=== PATIENT | female | born 1955 | race Caucasian/White ===

== ENCOUNTER 2023-11-01 13:53 | Inpatient (IN) | payer MEDICARE, OTHER ==
[~2023-11-01] VITALS: Ht 167.6 cm; Wt 95.6 kg
[2023-11-01] MEDS ORDERED: LINZ72CA PO (14:11)
[2023-11-01] MEDS ORDERED: LISI20TA35 PO (14:11)
[2023-11-01] MEDS ORDERED: PREG100C2 PO (14:11)
[2023-11-01] MEDS ORDERED: EZET1TAB98 PO (14:11)
[2023-11-01] MEDS ORDERED: FAMO1TAB11 PO (14:11)
[2023-11-01] MEDS ORDERED: ESOM40CA35 PO (14:11)
[2023-11-01] MEDS ORDERED: POTA1TAB23 PO (14:11)
[2023-11-01] MEDS ORDERED: SOD1.479 (14:11)
[2023-11-01] MEDS ORDERED: ZOLP5TAB PO (14:11)
[2023-11-01] MEDS ORDERED: DULO1CAP6 PO (14:11)
[2023-11-01] MEDS ORDERED: TIZA10TA (14:11)
[2023-11-01 15:03] LABS: BASO % 0.1 % (0.0-1.0); EOS # 0.1 10^3/uL (0.0-0.5); EOS % 1.2 % (0.0-3.0); HEMATOCRIT 40.8 % (36.0-47.0); HEMOGLOBIN 13.5 g/dl (12.0-15.5); LYMPH # 1.1 10^3/uL (1.5-5.0); LYMPH % 11.6 % (24.0-44.0); MEAN CORPUSCULAR HEMOGLOBIN 28.6 pg (27.0-33.0); MEAN CORPUSCULAR HGB CONC 33.1 g/dl (32.0-36.5); MEAN CORPUSCULAR VOLUME 86.4 fl (80.0-96.0); MONO # 1.1 10^3/uL (0.0-0.8); NEUTROPHILS # 7.3 10^3/uL (1.5-8.5); NEUTROPHILS % 75.8 % (36.0-66.0); PLATELET COUNT, AUTOMATED 249 10^3/uL (150-450); RED BLOOD COUNT 4.72 10^6/uL (4.00-5.40); WHITE BLOOD COUNT 9.6 10^3/uL (4.0-10.0)
[2023-11-01 15:13] LABS: ERYTHROCYTE SEDIMENTATION RATE 40 mm/hr (0-30)
[2023-11-01 15:16] LABS: ALBUMIN 4.1 G/DL (3.2-5.2); ALKALINE PHOSPHATASE 110 U/L (46-116); ALT/SGPT 28 U/L (7.0-40); AST/SGOT 22 U/L (<34); BILIRUBIN,DIRECT 0.2 MG/DL (<0.4); BILIRUBIN,TOTAL 0.6 MG/DL (0.3-1.2); BLOOD UREA NITROGEN 16 MG/DL (9-23); CALCIUM LEVEL 9.2 MG/DL (8.3-10.6); CARBON DIOXIDE LEVEL 28 MMOL/L (20-31); CHLORIDE LEVEL 105 MMOL/L (98-107); CREATININE FOR GFR 0.68 MG/DL (0.55-1.30); GLOMERULAR FILTRATION RATE > 60.0 (>45); GLUCOSE, FASTING 95 MG/DL (74-106); POTASSIUM SERUM 3.4 MMOL/L (3.5-5.1); SODIUM LEVEL 140 MMOL/L (136-145); TOTAL PROTEIN 7.5 G/DL (5.7-8.2)
[2023-11-01 15:20] LABS: PROCALCITONIN <0.04 ng/ml
[2023-11-01 15:32] LABS: INR 1.06; PARTIAL THROMBOPLASTIN TIME 26.6 SECONDS (24.8-34.2); PROTHROMBIN TIME 13.5 SECONDS (12.5-14.5)
[2023-11-01] MEDS: BOOSTRIX VACCINE (TETANUS/DIPHTH/ACEL. PERTUSSIS) 0.5ML SYR IM ONE (15:50)
[2023-11-01] MEDS: metroNIDAZOLE 500 MG in IV 1 EA IV ONE (16:54)
[2023-11-01] MEDS: KETOROLAC 30 MG/ML 1ML VIAL IV ONE (17:49)
[2023-11-01] MEDS: LevoFLOXacin IV 750 MG in IV 1 EA IV ONE (17:52)
[2023-11-01] MEDS ORDERED: ONDANSETRON 4MG 2ML VIAL IV PRN (17:55)
[2023-11-01] MEDS ORDERED: ENOXAPARIN 40MG/0.4ML SYRINGE (J1650 PER 10MG) SC SCH (18:00)
[2023-11-01] MEDS: POTASSIUM CHLORIDE 10MEQ SR TABLET PO ONE (18:23)
[2023-11-01] MEDS: KCL 20MEQ in NS 1000ML 1,000 ML IV SCH (19:22)
[2023-11-01] MEDS ORDERED: B-12100021 PO (19:57)
[2023-11-01] MEDS ORDERED: MULT-90 PO (19:57)
[2023-11-01] MEDS ORDERED: OYST1TAB PO (19:57)
[2023-11-01] MEDS ORDERED: GNP250TA9 PO (19:57)
[2023-11-01] MEDS ORDERED: HOME MED LIST COMPLETE! XX SCH (20:00)
[2023-11-01 20:25] VITALS: BP 123/52; TEMP 97.7; O2SAT 99
[2023-11-01] MEDS: zolPIDEM TARTRATE 5 MG TAB PO SCH (21:18)
[2023-11-01] MEDS: PREGABALIN 100 MG CAP (LYRICA) PO SCH (21:18)
[2023-11-01] MEDS: SIMVASTATIN 40 MG TAB PO SCH (21:18)
[2023-11-01] MEDS: KETOROLAC 30 MG/ML 1ML VIAL IV PRN (23:24)
[2023-11-01 23:51] VITALS: BP 123/53; TEMP 97.9; O2SAT 96
[2023-11-02] VITALS (8 sets, daily range): BP systolic 111–151; BP diastolic 53–83; TEMP 97.2–98.1; O2SAT 90–97
[2023-11-02] MEDS: metroNIDAZOLE 500 MG in IV 1 EA IV SCH (01:18)
[2023-11-02 07:43] LABS: HEMATOCRIT 35.1 % (36.0-47.0); HEMOGLOBIN 11.8 g/dl (12.0-15.5); MEAN CORPUSCULAR HEMOGLOBIN 28.9 pg (27.0-33.0); MEAN CORPUSCULAR HGB CONC 33.6 g/dl (32.0-36.5); PLATELET COUNT, AUTOMATED 218 10^3/uL (150-450); RED BLOOD COUNT 4.08 10^6/uL (4.00-5.40); WHITE BLOOD COUNT 8.1 10^3/uL (4.0-10.0)
[2023-11-02 08:08] LABS: BLOOD UREA NITROGEN 15 MG/DL (9-23); CALCIUM LEVEL 8.4 MG/DL (8.3-10.6); CARBON DIOXIDE LEVEL 25 MMOL/L (20-31); CHLORIDE LEVEL 107 MMOL/L (98-107); CREATININE FOR GFR 0.69 MG/DL (0.55-1.30); GLOMERULAR FILTRATION RATE > 60.0 (>45); GLUCOSE, FASTING 100 MG/DL (74-106); POTASSIUM SERUM 3.7 MMOL/L (3.5-5.1); SODIUM LEVEL 137 MMOL/L (136-145)
[2023-11-02] MEDS: DULoxetine 30MG CAPSULE (CYMBALTA) PO SCH (08:13)
[2023-11-02] MEDS: PANTOPRAZOLE 40MG TAB (PROTONIX) PO SCH (08:13)
[2023-11-02] MEDS ORDERED: ACETAMINOPHEN 1000MG 100ML IV BAG As Ordered ONE (09:31)
[2023-11-02] MEDS ORDERED: KETOROLAC 60MG 2ML VIAL As Ordered ONE (09:38)
[2023-11-02] MEDS ORDERED: propofoL 200 MG/20 ML VIAL As Ordered ONE (09:38)
[2023-11-02] MEDS ORDERED: LIDOCAINE 2% 100MG/5ML SDV (FOR ANES.) As Ordered ONE (09:38)
[2023-11-02] MEDS ORDERED: MIDAZOLAM INJ 2MG/2ML VIAL As Ordered ONE (09:38)
[2023-11-02] MEDS ORDERED: ONDANSETRON 4MG 2ML VIAL As Ordered ONE (09:38)
[2023-11-02] MEDS ORDERED: fentaNYL 100 MCG/2 ML INJECTION As Ordered ONE (09:39)
[2023-11-02] MEDS ORDERED: dexmedeTOMIDine (4MCG/ML)200MCG/50ML BTL (PRECEDEX) As Ordered ONE (13:07)
[2023-11-02] MEDS ORDERED: ONDANSETRON 4MG 2ML VIAL IV PRN (13:40)
[2023-11-02] MEDS ORDERED: oxyCODONE 5MG TAB PO PRN (13:40)
[2023-11-02] MEDS ORDERED: fentaNYL 100 MCG/2 ML INJECTION IV PRN (13:40)
[2023-11-02] MEDS: LR 1,000 ML IV SCH (13:40)
[2023-11-02] MEDS ORDERED: HYDROMORPHONE HCL 0.5 MG/ 0.5 ML SYRINGE IV PRN (13:40)
[2023-11-02] MEDS: FAMOTIDINE 20 MG TAB PO SCH (16:23)
[2023-11-02] MEDS: hydroCHLOROthiazide 12.5 MG CAPSULE PO SCH (16:24)
[2023-11-02] MEDS: LevoFLOXacin IV 750 MG in IV 1 EA IV SCH (17:36)
[2023-11-02] MEDS: EZETIMIBE 10MG TABLET (ZETIA) PO SCH (20:20)
[2023-11-03] VITALS: BP 154/72; TEMP 97.2; O2SAT 91
[2023-11-03 04:00] VITALS: BP 124/66; TEMP 97.7; O2SAT 90
[2023-11-03 06:39] LABS: HEMATOCRIT 35.3 % (36.0-47.0); HEMOGLOBIN 11.6 g/dl (12.0-15.5); MEAN CORPUSCULAR HEMOGLOBIN 28.8 pg (27.0-33.0); MEAN CORPUSCULAR HGB CONC 32.9 g/dl (32.0-36.5); MEAN CORPUSCULAR VOLUME 87.6 fl (80.0-96.0); PLATELET COUNT, AUTOMATED 202 10^3/uL (150-450); RED BLOOD COUNT 4.03 10^6/uL (4.00-5.40); WHITE BLOOD COUNT 7.8 10^3/uL (4.0-10.0)
[2023-11-03 07:07] LABS: ALBUMIN 3.4 G/DL (3.2-5.2); ALKALINE PHOSPHATASE 105 U/L (46-116); ALT/SGPT 27 U/L (7.0-40); AST/SGOT 20 U/L (<34); BILIRUBIN,TOTAL 0.3 MG/DL (0.3-1.2); BLOOD UREA NITROGEN 12 MG/DL (9-23); CALCIUM LEVEL 8.8 MG/DL (8.3-10.6); CARBON DIOXIDE LEVEL 24 MMOL/L (20-31); CHLORIDE LEVEL 108 MMOL/L (98-107); CREATININE FOR GFR 0.65 MG/DL (0.55-1.30); GLOMERULAR FILTRATION RATE > 60.0 (>45); GLUCOSE, FASTING 128 MG/DL (74-106); POTASSIUM SERUM 3.7 MMOL/L (3.5-5.1); SODIUM LEVEL 138 MMOL/L (136-145); TOTAL PROTEIN 6.4 G/DL (5.7-8.2)
[2023-11-03] MEDS ORDERED: traMADol 50 MG TAB PO PRN (08:15)
[2023-11-03 08:24] VITALS: BP 141/61; TEMP 97.5; O2SAT 91
[2023-11-03] MEDS: ACETAMINOPHEN TAB 650MG DOSE (2X325MG) PO PRN (08:34)
[2023-11-03] MEDS ORDERED: OMEPRAZOLE 20MG CAP PO SCH (09:00)
[2023-11-03 12:21] VITALS: BP 141/66; TEMP 97.5; O2SAT 92
[2023-11-03] MEDS: LevoFLOXacin 750 MG TABLET PO SCH (12:24)
[2023-11-03] MEDS: metroNIDAZOLE (FLAGYL) 500MG TABLET PO SCH (15:05)
[2023-11-03 16:21] VITALS: BP 149/68; TEMP 97.3; O2SAT 92
[2023-11-03] MEDS: LACTOBACILLUS ACIDOPHILUS CAP (BACID) PO SCH (18:06)
[2023-11-03 21:33] VITALS: BP 149/70; TEMP 97.5; O2SAT 94
[2023-11-04] VITALS: BP 123/50; TEMP 97; O2SAT 91
[2023-11-04 05:24] VITALS: BP 149/76; TEMP 97.5; O2SAT 97
[2023-11-04 06:38] LABS: HEMATOCRIT 34.2 % (36.0-47.0); HEMOGLOBIN 11.7 g/dl (12.0-15.5); MEAN CORPUSCULAR HEMOGLOBIN 29.5 pg (27.0-33.0); MEAN CORPUSCULAR HGB CONC 34.2 g/dl (32.0-36.5); MEAN CORPUSCULAR VOLUME 86.1 fl (80.0-96.0); PLATELET COUNT, AUTOMATED 228 10^3/uL (150-450); RED BLOOD COUNT 3.97 10^6/uL (4.00-5.40); WHITE BLOOD COUNT 8.1 10^3/uL (4.0-10.0)
[2023-11-04 07:04] LABS: ALBUMIN 3.4 G/DL (3.2-5.2); ALKALINE PHOSPHATASE 94 U/L (46-116); ALT/SGPT 27 U/L (7.0-40); AST/SGOT 26 U/L (<34); BILIRUBIN,TOTAL 0.3 MG/DL (0.3-1.2); BLOOD UREA NITROGEN 11 MG/DL (9-23); CALCIUM LEVEL 8.7 MG/DL (8.3-10.6); CARBON DIOXIDE LEVEL 26 MMOL/L (20-31); CHLORIDE LEVEL 108 MMOL/L (98-107); CREATININE FOR GFR 0.64 MG/DL (0.55-1.30); GLOMERULAR FILTRATION RATE > 60.0 (>45); GLUCOSE, FASTING 114 MG/DL (74-106); POTASSIUM SERUM 3.4 MMOL/L (3.5-5.1); SODIUM LEVEL 141 MMOL/L (136-145); TOTAL PROTEIN 6.5 G/DL (5.7-8.2)
[2023-11-04] MEDS ORDERED: RISATAB3 PO (07:27)
[2023-11-04] MEDS ORDERED: LEVO1TAB40 PO (07:27)
[2023-11-04] MEDS ORDERED: METR-265 PO (07:27)
[2023-11-04] MEDS ORDERED: ACET1TAB55 PO (07:27)
[2023-11-04 08:07] VITALS: BP 153/78; TEMP 97.7; O2SAT 95
[2023-11-04] MEDS ORDERED: ONDA-282 PO (08:15)
[2023-11-04] MEDS: POTASSIUM CHLORIDE 10MEQ SR TABLET PO ONE (09:01)
[2023-11-04 09:02] VITALS: BP 153/78
[2023-11-04] MEDS ORDERED: ENOXAPARIN 40MG/0.4ML SYRINGE (J1650 PER 10MG) SC SCH (21:00)
== END 2023-11-04 11:15 | disposition home or self-care (01) | DRG 513 ==
LOC: M ED 13:53 → M ED INP 17:41 → M MS5PR 20:22
PROVIDERS: ADMIT Preventive Medicine Undersea and Hyperbaric Medicine; ATTEND Internal Medicine
PROC: 0LD70ZZ Extraction of Right Hand Tendon, Open Approach (ICD-10-PCS; principal; 2023-11-02 08:00)
DX: M65.141 Other infective (teno)synovitis, right hand (principal); L03.113 Cellulitis of right upper limb; E78.5 Hyperlipidemia, unspecified; K21.9 Gastro-esophageal reflux disease without esophagitis; E87.6 Hypokalemia; I10 Essential (primary) hypertension; I80.8 Phlebitis and thrombophlebitis of other sites; S61.431A Puncture wound without foreign body of right hand, initial encounter; W54.0XXA Bitten by dog, initial encounter; Y93.9 Activity, unspecified; Y92.9 Unspecified place or not applicable; Y99.8 Other external cause status; Z79.899 Other long term (current) drug therapy; Z88.0 Allergy status to penicillin; Z88.1 Allergy status to other antibiotic agents; Z86.73 Personal history of transient ischemic attack (TIA), and cerebral infarction without residual deficits